=== PATIENT | female | born 1990 | race Caucasian/White ===

== ENCOUNTER 2017-06-18 04:52 | Inpatient (IN) | payer BC ==
[2017-06-18] MEDS ORDERED: RINGER'S SOLUTION,LACTATED 1,000 ML IV PRN ×2 (05:56)
[2017-06-18] MEDS ORDERED: FLU VACC QS2017-18(6MOS UP)/PF 60 MCG/0.5 ML SYRINGE IM ONE (06:01)
[2017-06-18] MEDS ORDERED: ceFAZolin SODIUM/DEXTROSE,ISO 2 GM/50 ML BAG IV ONE (07:00)
[2017-06-18] MEDS ORDERED: OXYTOCIN 20 UNITS in RINGER'S SOLUTION,LACTATED 1,000 ML IV ONE (07:00)
[2017-06-18] MEDS ORDERED: RINGER'S SOLUTION,LACTATED 1,000 ML IV ONE (07:40)
[2017-06-18] MEDS ORDERED: SENNOSIDES 8.6 MG TABLET PO PRN (09:08)
[2017-06-18] MEDS ORDERED: BISACODYL 10 MG SUPP.RECT RC PRN (09:08)
[2017-06-18] MEDS ORDERED: DEXTROSE 5%-LACTATED RINGERS 1,000 ML IV PRN (09:08)
[2017-06-18] MEDS ORDERED: ONDANSETRON HCL/PF 2 MG/ML VIAL IV PRN (09:08)
--- NOTE | 2017-06-18 09:11 | OR ---
Operative Report - Dictated Report Narrative: Indication: 27-year-old 4 para 2012 at 39 weeks with prior section presents for repeat low transverse section Pre Operative Diagnosis: Prior section 2 Post Operative Diagnosis: Same. Procedure: Repeat low transverse section. Surgeon: Gen Rosario DO Registered Dietitian: OR Staff Anesthesia: Spinal, TAP block Estimated Blood Loss: 50 mL Urine Output: 75 mL clear urine Fluids Replacement: 1300 mL Drains: Wu to gravity Surgical Complications: None Specimens: Placenta to freezer Findings: Male born in cephalic presentation at 0810 on 06/18/2018 with Apgars 8 and 8, weighing 4335 g. Normal uterus, ovaries, and right tube. Left tube surgically absent consistent with history of prior ectopic . Technique: The patient was taken to the operating room and placed in dorsal supine position with a left lateral tilt. After adequate spinal anesthesia, wu catheter inserted, SCDs placed, and 2 g of Ancef given preoperatively, the abdominal cavity was entered using sharp and blunt dissection. Two rolled laps were placed in the pericolic gutters on either side of the uterus. A transverse incision was made in the lower uterine segment and extended laterally and upwardly with digital traction. Clear fluid was noted upon amniotomy. The was delivered easily. The cord was clamped and cut and infant was handed off to awaiting shot peen operator. The placenta was allowed to deliver spontaneously. The uterus was cleared of clot and debris. Uterine incision was closed with 0 Vicryl using a running stitch. A second imbricating layer was placed. Excellent hemostasis was noted. The rolled laps were removed from the abdominal cavitiy. The peritoneum was closed with a running 3- 0 Monocryl. The same suture was used to approximate the rectus and pyramidalis muscles. The fascia was closed with a running 0 Vicryl. The subcutaneous layer was closed with a running 3-0 Monocryl. The same suture was used to approximate the subdermal layer. The skin was closed with a running 4-0 Monocryl and Dermabond. Sponge, lap, needle, and instrument count were correct x 2. Disposition: To post anesthesia care unit in good condition History for Definition: * The number of deliveries resulting in a live the patient experienced prior to current hospitalization * The previous delivery of live twins or any live multiple gestation is considered one live event. *If primagravida or nulliparous is documented select zero for the number of previous live births. Live Events: 2
--- NOTE | 2017-06-18 09:49 | OR ---
Anesthesia Procedure Note - Anesthesia Procedure Note Date of Service: 06/18/17 Narrative: Vital Signs - Last Taken Temp 36.8 C 06/18/17 09:30 Pulse 98 06/18/17 09:30 Resp 18 06/18/17 09:30 BP 124/68 06/18/17 09:30 Pulse Ox 97 06/18/17 09:30 O2 Oxygen Delivery Method Room Air 06/18/17 09:48 ANESTHESIA PROCEDURE NOTE Date of Procedure: 06/18/2017 Time of procedure: 9:05 AM. Performed by: JANET Sánchez CRNA, MSN Horse Race Timer: Judy Hermosillo RN. Preprocedure diagnosis: Post section pain. Post procedure diagnosis: Same. Procedure: Bilateral TAP block Indications: Post section pain relief. Findings: See below. Details of the procedure: The patient was brought to PACU and placed in the supine position. The patient was prepped with chlorhexidine and using ultrasound guidance the 3 abdominal muscular planes were identified and lidocaine 1% was infiltrated to the skin of the intended injection site. Under ultrasound guidance the the internal oblique and transverse this abdominis muscle layers were approached until the tip of the block needle rested in the plane between the muscles. 25 mL bupivacaine 0.5% with 1-200,000 epinephrine was injected and the procedure was repeated on the other side. Please see radiology/ultrasound report for details and images of the procedure. EBL: 0 Fluids: N/A. Specimen: N/A. Post procedure condition: The patient tolerated the procedure well. No complications were noted. Thank you for this consultation. Hilton Swanson CRNA, ARNP, MSN
[2017-06-18] MEDS: oxyCODONE HCL/ACETAMINOPHEN 1 TAB TABLET PO PRN ×4 (11:22→20:34)
[2017-06-18] MEDS: IBUPROFEN 800 MG TABLET PO PRN ×3 (11:22→23:43)
[2017-06-18] MEDS: DOCUSATE SODIUM 100 MG CAPSULE PO SCH ×2 (16:01→20:33)
[2017-06-18] MEDS: ENOXAPARIN SODIUM 40 MG/0.4 ML SYRG SC SCH (16:09)
[2017-06-19] MEDS: oxyCODONE HCL/ACETAMINOPHEN 1 TAB TABLET PO PRN ×4 (03:04→19:47)
[2017-06-19] MEDS ORDERED: FLU VACC QS2017-18(6MOS UP)/PF 60 MCG/0.5 ML SYRINGE IM ONE (08:49)
[2017-06-19] MEDS: IBUPROFEN 800 MG TABLET PO PRN ×3 (08:56→21:33)
[2017-06-19] MEDS: DOCUSATE SODIUM 100 MG CAPSULE PO SCH ×2 (09:12→21:31)
--- NOTE | 2017-06-19 10:08 | PN ---
Subjective - Date and Time Seen Date: 06/19/17 Time: 10:08 Objective - Vitals Vitals: Last Vital Signs Temp 36.9 C 06/19/17 06:01 Pulse 80 06/19/17 06:01 Resp 18 06/19/17 06:01 BP 127/90 06/19/17 06:01 Pulse Ox 98 06/19/17 06:01 Patient denies complaints. Tolerating regular diet. Ambulating without difficulty. Pain well controlled. Lochia wnl. Abdomen - soft, appropriately tender Incision - clean, dry, intact Uterus - firm, at umbilicus -1 No calf tenderness Impression: Post op day #1 s/p repeat section. Baby transferred to [facility] for mild respiratory distress Plan: Continue routine post-operative/ care Cauti Physician Documentation - Urinary Catheter Management Uretheral ([facility]) Date of Insertion: 06/18/17 Time of Insertion: 08:52
[2017-06-19] MEDS: ENOXAPARIN SODIUM 40 MG/0.4 ML SYRG SC SCH (15:34)
[2017-06-20] MEDS: oxyCODONE HCL/ACETAMINOPHEN 1 TAB TABLET PO PRN ×2 (04:35→12:39)
[2017-06-20] MEDS: IBUPROFEN 800 MG TABLET PO PRN (07:46)
[2017-06-20] MEDS: SIMETHICONE 80 MG TAB.CHEW PO PRN ×2 (07:48→12:39)
[2017-06-20] MEDS: DOCUSATE SODIUM 100 MG CAPSULE PO SCH ×2 (07:48→12:30)
[2017-06-20 09:15] VITALS: BP 131/77
--- NOTE | 2017-06-20 10:23 | PN ---
Subjective - Date and Time Seen Date: 06/20/17 Time: 10:22 Objective - Vitals Vitals: Last Vital Signs Temp 36.6 C 06/20/17 09:12 Pulse 92 06/20/17 09:12 Resp 16 06/20/17 09:12 BP 131/77 06/20/17 09:12 Pulse Ox 98 06/20/17 09:12 Patient denies complaints. Ambulating well. Tolerating regular diet. Pain well controlled. Lochia wnl. Abdomen - soft, appropriately tender Incision - clean, dry, intact Uterus - firm, at umbilicus -2 No calf tenderness Impression: Post op day #2 s/p repeat section. Plan: Continue routine post-operative/ care. Discharge instructions given today in case patient desires early discharge later this afternoon. Cauti Physician Documentation - Urinary Catheter Management Uretheral ([facility]) Date of Insertion: 06/18/17 Time of Insertion: 08:52
== END 2017-06-20 14:35 | disposition home or self-care (01) | DRG 766 ==
LOC: OB 04:52 → MS 06-19 22:24
PROVIDERS: ADMIT Obstetrics & Gynecology; ATTEND Obstetrics & Gynecology
PROC: 4A1HXCZ Monitoring of Products of Conception, Cardiac Rate, External Approach (ICD-10-PCS; 2017-06-18)
PROC: 10D00Z1 Extraction of Products of Conception, Low, Open Approach (ICD-10-PCS; principal; 2017-06-18 08:00)
DX: O34.211 Maternal care for low transverse scar from previous cesarean delivery (principal); Z3A.39 39 weeks gestation of pregnancy; Z37.0 Single live birth; Z23 Encounter for immunization
CPT/HCPCS: 59025; 59510; 90686; G0008